=== PATIENT | female | born 1950 | race Caucasian/White ===

== ENCOUNTER 2018-06-24 09:37 | Day surgery (SDC) | payer MEDICARE, BC ==
[~2018-06-24 09:37] MED LIST: LIDOCAINE HCL 1% MPF 30 SOL ONE; PROPOFOL 500 MG/50 ML EMU IV ONE
[2018-06-24 12:14] VITALS: BP 144/84; PULSE 71; RESP 20; TEMP 97.3; O2SAT 97
== END 2018-06-24 12:30 | disposition home or self-care (01) | DRG 951 ==
LOC: SURG 09:37
PROVIDERS: ATTEND Surgery
DX: Z12.11 Encounter for screening for malignant neoplasm of colon (principal); K57.32 Diverticulitis of large intestine without perforation or abscess without bleeding; Z86.010 Personal history of colon polyps; D12.0 Benign neoplasm of cecum
CPT/HCPCS: J2001; J2704

== ENCOUNTER 2019-05-27 15:47 | Inpatient (IN) | payer BC ==
[2019-05-27] MEDS ORDERED: ONDANSETRON HCL 4 MG/2 ML SOL IV ONE (16:19)
[2019-05-27] MEDS ORDERED: SODIUM CHLORIDE 0.9% 1000ML 1,000 ML IV ONE (16:19)
[2019-05-27 16:31] LABS: BASOPHILS % (AUTO) 1 % (0-3); EOSINOPHILS % (AUTO) 2 % (0-9); HEMATOCRIT 45 % (35-47); HEMOGLOBIN 14.2 gm/dl (12.0-15.5); LYMPHOCYTES % (AUTO) 20.2 % (10-50); MEAN CORPUSCULAR HEMOGLOBIN 29.1 pg (27.0-32.0); MEAN CORPUSCULAR HGB CONC 31.5 gm/dl (32.0-36.0); MEAN CORPUSCULAR VOLUME 92 fL (81-99); MONOCYTES % (AUTO) 9.1 % (0-12); NEUTROPHILS % (AUTO) 67.4 % (37-80)
[2019-05-27] MEDS ORDERED: ONDANSETRON HCL 4 MG/2 ML SOL ONE (16:43)
[2019-05-27 16:50] LABS: ALBUMIN 3.3 gm/dl (3.4-5.0); BILIRUBIN,TOTAL 0.7 mg/dl (0.2-1.0); CALCIUM 8.5 mg/dl (8.5-10.1); CREATININE 0.88 mg/dl (0.60-1.00); CRP INFLAMMATORY 0.64 mg/dl (0.00-0.33); MAGNESIUM 1.8 mg/dl (1.8-2.4); TOTAL PROTEIN 6.8 gm/dl (6.4-8.2)
[2019-05-27] MEDS ORDERED: PIPERACILLIN/TAZOBACT 3.375 GM PDS IV ONE ×2 (17:59→23:51)
[2019-05-27] MEDS ORDERED: ONDANSETRON HCL 4 MG/2 ML SOL IV PRN (18:11)
[2019-05-27] MEDS: PIPERACILLIN/TAZOBACT 3.375 GM 3.375 GM in SODIUM CHLORIDE 0.9% 100 ML 100 ML IV SCH (18:15)
[2019-05-27] MEDS ORDERED: ACETAMINOPHEN 500 MG 500 MG TAB PO ONE (18:47)
[2019-05-27] MEDS: SODIUM CHLORIDE 0.9% 1000ML 1,000 ML IV SCH (19:26)
[2019-05-27] MEDS: SODIUM CHLORIDE 0.9% FLUSH 10 ML SOL IV SCH (19:26)
[2019-05-27] MEDS: CLONAZEPAM 0.5 MG TAB PO SCH (20:45)
[2019-05-27] MEDS: METFORMIN HYDROCHLORIDE 500 MG TAB PO SCH (22:25)
[2019-05-27] MEDS ORDERED: SODIUM CHLORIDE 0.9% 100 ML 100 ML IV ONE (23:51)
[2019-05-28] MEDS: PIPERACILLIN/TAZOBACT 3.375 GM 3.375 GM in SODIUM CHLORIDE 0.9% 100 ML 100 ML IV SCH ×3 (00:07→12:14)
[2019-05-28] MEDS: IBUPROFEN 600 MG TAB PO PRN ×2 (00:15→09:57)
[2019-05-28] MEDS: SODIUM CHLORIDE 0.9% FLUSH 10 ML SOL IV SCH ×4 (03:14→20:17)
[2019-05-28] MEDS ORDERED: SODIUM CHLORIDE 0.9% 100 ML 100 ML IV ONE ×2 (05:44→10:28)
[2019-05-28] MEDS ORDERED: PIPERACILLIN/TAZOBACT 3.375 GM PDS IV ONE ×2 (05:44→10:28)
[2019-05-28] MEDS: SODIUM CHLORIDE 0.9% 1000ML 1,000 ML IV SCH ×2 (06:00→17:31)
[2019-05-28] MEDS: LEVOTHYROXINE SODIUM 112 MCG TAB PO SCH (06:00)
[2019-05-28] MEDS: CLONAZEPAM 0.5 MG TAB PO SCH (08:48)
[2019-05-28] MEDS: SERTRALINE HYDROCHLORIDE 50 MG TAB PO SCH (08:48)
[2019-05-28] MEDS ORDERED: METFORMIN HYDROCHLORIDE 500 MG TAB PO SCH ×2 (09:00→21:00)
[2019-05-28] MEDS ORDERED: ENOXAPARIN 40 MG SOL SC SCH (09:00)
[2019-05-28] MEDS ORDERED: PATIENT EDUCATION 1 MISC PRN (09:55)
[2019-05-28] MEDS ORDERED: CLONAZEPAM 0.5 MG TAB PO PRN (12:07)
[2019-05-28] MEDS: METFORMIN HYDROCHLORIDE 500 MG TAB PO SCH (20:14)
[2019-05-28] MEDS: SULFAMETHOXAZOLE/TRIMETHOPRI 800/160 MG PO SCH (20:15)
[2019-05-28] MEDS: DIPHENHYDRAMINE 25 MG CAP PO PRN (20:15)
[2019-05-29] MEDS: SODIUM CHLORIDE 0.9% FLUSH 10 ML SOL IV SCH ×2 (06:24→09:14)
[2019-05-29] MEDS: LEVOTHYROXINE SODIUM 112 MCG TAB PO SCH (06:24)
[2019-05-29] MEDS: DIPHENHYDRAMINE 25 MG CAP PO PRN (06:52)
[2019-05-29 07:24] LABS: CREATININE 0.9 mg/dl (0.60-1.00)
[2019-05-29 07:28] LABS: BASOPHILS % (AUTO) 1 % (0-3); EOSINOPHILS % (AUTO) 3 % (0-9); HEMATOCRIT 41 % (35-47); HEMOGLOBIN 13.1 gm/dl (12.0-15.5); LYMPHOCYTES % (AUTO) 24.6 % (10-50); MEAN CORPUSCULAR HEMOGLOBIN 29.3 pg (27.0-32.0); MEAN CORPUSCULAR HGB CONC 31.5 gm/dl (32.0-36.0); MEAN CORPUSCULAR VOLUME 93 fL (81-99); MONOCYTES % (AUTO) 11.1 % (0-12); NEUTROPHILS % (AUTO) 59.9 % (37-80)
[2019-05-29 07:31] LABS: CARBON DIOXIDE 28.7 mEq/L (21-32)
[2019-05-29 09:13] VITALS: BP 148/79; PULSE 56; RESP 16; TEMP 96.1; O2SAT 95
[2019-05-29] MEDS: SULFAMETHOXAZOLE/TRIMETHOPRI 800/160 MG PO SCH (09:14)
[2019-05-29] MEDS: SERTRALINE HYDROCHLORIDE 50 MG TAB PO SCH (09:14)
[2019-05-30] MEDS ORDERED: LORATADINE 10 MG TAB PO SCH (09:00)
== END 2019-05-29 14:20 | disposition home or self-care (01) | DRG 392 ==
LOC: ED 15:47 → ACUTE CARE 18:00 → UNDOADMIN 18:00 → ACUTE CARE 19:00
PROVIDERS: ADMIT Family Medicine; ATTEND Family Medicine
DX: K57.92 Diverticulitis of intestine, part unspecified, without perforation or abscess without bleeding (principal); R11.0 Nausea; R10.9 Unspecified abdominal pain; E86.0 Dehydration; G47.33 Obstructive sleep apnea (adult) (pediatric); E11.9 Type 2 diabetes mellitus without complications; F41.9 Anxiety disorder, unspecified; R42 Dizziness and giddiness; E03.9 Hypothyroidism, unspecified
CPT/HCPCS: 36415; 74177; 80048; 80053; 82962; 83690; 83735; 85025; 86140; 96365; 96366; 96374; 99070; 99222; 99285; J1650; J2405; J2543; Q9967; A9270-GY